=== PATIENT | female | born 1960 | race Caucasian/White ===

== ENCOUNTER 2019-04-28 09:30 | Inpatient (IN) | payer BC ==
[~2019-04-28 09:30] MED LIST: Acetaminophen 500 MG Tab PO ONE; Dextrose 5%-Lactated Ringers 1,000 ML IV SCH; Gabapentin 300 MG Cap PO ONE; ceFAZolin 2 GM in Premix Bag 1 BAG IV ONE
[2019-04-28] MEDS ORDERED: Gabapentin 300 MG Cap PO ONE (11:00)
[2019-04-28] MEDS ORDERED: Acetaminophen 500 MG Tab PO ONE (11:00)
[2019-04-28] MEDS ORDERED: Ondansetron 4 MG/2 ML SDV ONE (11:46)
[2019-04-28] MEDS ORDERED: Propofol 200 MG/20 ML SDV ONE (11:46)
[2019-04-28] MEDS ORDERED: Glycopyrrolate 0.2 MG/ML 5 ML MDV ONE (11:46)
[2019-04-28] MEDS ORDERED: Dexamethasone 4 MG/ML SDV ONE (11:46)
[2019-04-28] MEDS ORDERED: Neostigmine Methylsulfate 1 MG/ML 5 ML Syringe ONE (11:46)
[2019-04-28] MEDS ORDERED: Succinylcholine 200 MG/10 ML MDV ONE (11:46)
[2019-04-28] MEDS ORDERED: fentaNYL 250 MCG/5 ML SDV ONE ×2 (11:47→15:18)
[2019-04-28] MEDS ORDERED: Midazolam 1 MG/ML 2 ML SDV ONE (14:31)
[2019-04-28] MEDS ORDERED: Meropenem 500 MG SDV ONE (15:05)
[2019-04-28] MEDS ORDERED: Lactated Ringers 1,000 ML ONE (15:10)
[2019-04-28] MEDS ORDERED: Mupirocin Oint 22 GM Tube TOP ONE (15:30)
[2019-04-28] MEDS ORDERED: hydrOXYzine HCl 100 MG/2 ML SDV IM ONE (16:51)
[2019-04-28] MEDS ORDERED: Morphine PF 150 MG/30 ML PCA Syringe IV PRN (16:59)
[2019-04-28] MEDS ORDERED: Naloxone 0.4 MG/ML SDV IV PRN (17:13)
[2019-04-28] MEDS ORDERED: hydrOXYzine HCl 100 MG/2 ML SDV IM PRN (18:35)
[2019-04-28] MEDS ORDERED: Ondansetron 4 MG/2 ML SDV IVPUSH PRN (18:36)
[2019-04-28] MEDS ORDERED: LORazepam 0.5 MG Tab PO PRN (18:45)
[2019-04-28] MEDS ORDERED: Glucagon,Human Recombinant 1 MG Vial IM PRN (18:58)
[2019-04-28] MEDS ORDERED: Glucose Gel 15 GM in 37.5 GM Tube PO PRN (18:58)
[2019-04-28] MEDS ORDERED: 50% Dextrose in Water 50 ML Syringe IVPUSH PRN (18:58)
[2019-04-28] MEDS ORDERED: Insulin Lispro 100 Unit/ML 3 ML KwikPen SUBCUT PRN (18:58)
[2019-04-28] MEDS: Dextrose 5%-Lactated Ringers 1,000 ML IV SCH (19:30)
[2019-04-28] MEDS: Lactated Ringers 1,000 ML IV SCH (19:30)
[2019-04-28] MEDS ORDERED: ceFAZolin 1 GM Vial ONE (20:11)
[2019-04-28] MEDS ORDERED: Sodium Chloride 0.9% 100 ML ONE (20:12)
[2019-04-28] MEDS: ceFAZolin 1 GM in Premix Bag 1 BAG IV SCH (20:35)
[2019-04-28] MEDS: Mupirocin Oint 22 GM Tube TOP SCH (22:52)
[2019-04-28] MEDS: Gabapentin 300 MG Cap PO SCH (22:52)
[2019-04-28] MEDS ORDERED: buPROPion 100 MG Tab ONE (23:27)
[2019-04-29] MEDS: ceFAZolin 1 GM in Premix Bag 1 BAG IV SCH ×2 (03:33→12:35)
[2019-04-29] MEDS: Lactated Ringers 1,000 ML IV SCH ×2 (03:38→15:41)
[2019-04-29] MEDS ORDERED: hydrOXYzine HCl 100 MG/2 ML SDV IM PRN (07:16)
[2019-04-29] MEDS: Dextrose 5%-Lactated Ringers 1,000 ML IV SCH (07:26)
[2019-04-29] MEDS ORDERED: Acetaminophen/HYDROcodone 325-5 MG Tab PO PRN (08:05)
[2019-04-29] MEDS ORDERED: Acetaminophen 160 MG Tab,Disintegrating PO PRN (08:08)
[2019-04-29] MEDS: Pantoprazole 40 MG Tab.CR PO SCH (08:32)
[2019-04-29] MEDS: Levothyroxine 50 MCG Tab PO SCH (08:33)
[2019-04-29] MEDS ORDERED: Celecoxib 200 MG Cap PO SCH ×2 (09:00→21:00)
[2019-04-29] MEDS ORDERED: Liraglutide (rDNA Origin) 0.6 MG/0.1 ML 3 ML Pen SUBCUT SCH ×2 (09:00→21:00)
[2019-04-29] MEDS: Mupirocin Oint 22 GM Tube TOP SCH ×2 (09:20→20:05)
[2019-04-29] MEDS: PARoxetine 20 MG Tab PO SCH (09:21)
--- NOTE | 2019-04-29 11:51 | PN ---
CORRECTED REPORT DATE OF SERVICE: 04/29/2019 SUBJECTIVE: Ema is postoperative day #1. She has been up ambulating. Pain has been controlled. She had her Whitfield removed last evening and been voiding without difficulty. Afebrile. Oral intake 480. Urine output was 1250. OLENA drain #1 and #2 put out 25 and 80 respectively of a light red drainage. OBJECTIVE: GENERAL: Ema is a pleasant 58-year-old female. She is alert and orientated. VITAL SIGNS: TPR 95.1, 70, 16, blood pressure 140/81. HEENT: Negative. NECK: Supple. HEART: Regular rate and rhythm. LUNGS: Clear. ABDOMEN: Dressings dry and intact. Abdominal binder is on. OLENA drains intact. EXTREMITIES: Without peripheral edema and SCDs are on. ASSESSMENT: Panniculectomy, repair of umbilical hernia, and a repair of incisional hernia for chronic panniculitis, umbilical hernia and small incisional hernia. Date of surgery 04/28/2019. Surgeon, Andrea José MD. PLAN: 1. Regular step 4 gastric bypass diet. 2. [place] 5/325 mg 1 to 2 every 4 hours p.r.n. pain. DC SOFTWARE PERFORMANCE ENGINEER. 3. DC continuous pulse ox. 4. Dressing off. 5. May shower. 6. Saline lock IV at noon. 7. Good pulmonary toilet. 8. Communication order to teach patient on OLENA home drain care to strip, measure, and record OLENA drains q.i.d. and p.r.n. We will evaluate p.r.n. or in a.m. Trudy Galarza PA-C /[id number]
[2019-04-29] MEDS ORDERED: diphenhydrAMINE 25 MG Cap PO ONE (15:37)
[2019-04-29] MEDS ORDERED: diphenhydrAMINE 25 MG Cap PO PRN (15:37)
[2019-04-29] MEDS: traMADol 50 MG Tab PO PRN ×2 (18:39→22:35)
[2019-04-29] MEDS: Gabapentin 300 MG Cap PO SCH (20:03)
[2019-04-30] MEDS: traMADol 50 MG Tab PO PRN ×2 (04:11→11:02)
[2019-04-30] MEDS: Levothyroxine 50 MCG Tab PO SCH (08:10)
[2019-04-30] MEDS: Pantoprazole 40 MG Tab.CR PO SCH (08:11)
[2019-04-30] MEDS: Mupirocin Oint 22 GM Tube TOP SCH (08:33)
[2019-04-30] MEDS: PARoxetine 20 MG Tab PO SCH (09:05)
--- NOTE | 2019-04-30 16:43 | DISCH ---
ADMISSION DIAGNOSES: 1. Chronic panniculitis. 2. Status post Lauri-en-Y gastric bypass surgery. 3. Unspecified surgical malabsorption. 4. B12 deficiency. 5. Endometrial cancer. 6. Mood disorder. 7. Chronic sacroiliac joint pain. DISCHARGE DIAGNOSES: Panniculectomy, repair of umbilical hernia, and repair of incisional hernia for chronic panniculitis, umbilical hernia, and small incisional hernia. DATE OF SURGERY: 04/28/2019. SURGEON: Andrea José MD HISTORY: Ema is a 58-year-old female with chronic panniculitis. After preoperative evaluation and discussion of the possible risks and possible complications, she wished to proceed with surgical procedure. HOSPITAL COURSE: Ema had her surgery on 04/28/2019. She had no operative complications. On postoperative day #1, she was started on oral pain medication and a regular step-4 gastric bypass diet. On postoperative day 2, vital signs were stable, activity was good, pain was well managed, and she was able to be discharged to home. PHYSICAL EXAMINATION: GENERAL: Ema is a 58-year-old female. Height is 5 feet 4.9 inches and weight is 180 pounds. VITAL SIGNS: TPR are 97, 70, and 16; blood pressure is 145/70. HEENT: Negative. NECK: Supple. HEART: Regular rate and rhythm. LUNGS: Clear. ABDOMEN: [place] intact. Incision looks good. OLENA drains are intact, draining a light pink drainage. EXTREMITIES: Without peripheral edema. DISPOSITION: Discharged to home. CONDITION: Stable and improving. FOLLOWUP: Followup appointment on 05/09/2019 at 10 a.m. PRESCRIPTIONS: 1. New prescription is tramadol 50 mg oral q.4 hours p.r.n. pain, #40. 2. Celebrex 200 mg at bedtime, #14. 3. She is to resume her home medications. DIET: Usual diet as tolerated. Drink 8 to 10 glasses of water a day. ACTIVITY: No lifting greater than 10 pounds for 6 weeks. DRIVING: Do not drive for one week and while on pain medication. SHOWER/BATHING: May shower. DISCHARGE INSTRUCTIONS: Notify provider if any fever, increased pain, nausea, or vomiting. Keep site clean and dry. Wear abdominal binder for 6 weeks. Strip empty drain and record OLENA drains 4 times a day and bring results to clinic appointments. SPECIAL INSTRUCTIONS: Use incentive spirometer 10 times every hour while awake for one week.
--- NOTE | 2019-05-01 08:46 | OR ---
DATE OF PROCEDURE: 04/28/2019 SURGEON: Andrea José MD PREOPERATIVE DIAGNOSIS: Chronic panniculitis. POSTOPERATIVE DIAGNOSES: 1. Chronic panniculitis. 2. Umbilical hernia. 3. Small incisional hernia. OPERATIVE PROCEDURES: 1. Panniculectomy (21137). 2. Repair of umbilical hernia (57130). 3. Repair of incisional hernia (99183). ANESTHESIA: General. VEGETABLE PICKER: Trudy Galarza PA-C, and ISAAC Ivan3. INDICATION FOR PROCEDURE: This is a 58-year-old status post previous Lauri-en-Y gastric bypass, presenting with chronic panniculitis. The plan is to proceed with a panniculectomy. Potential risks including bleeding, infection, cosmetic deformity were reviewed, and the patient wishes to proceed. DETAILS OF PROCEDURE: The patient was taken to the operating room. After general endotracheal anesthesia was induced, a Whitfield catheter was inserted and the abdomen was prepped and draped. A broad transversely oriented elliptical incision was then made across the lower abdomen, carried down to the skin and subcutaneous tissue, down to the level of fascia. Using the Sonicision, the pannus was then reflected off the abdominal wall. In the midline, she had a previous incision with some dense scar, which was divided with electrocautery, and upon removal of the pannus, the patient was noted to have a small incisional hernia in the lower end of the previous lower midline incision, as well as umbilical hernia, and both of these were repaired with 0 Vicryl sutures. The patient had a distorted scar at the very lower aspect of the midline extending somewhat onto the suprapubic area. This was excised by means of a wedge-shaped incision and that tissue then removed as well. A small T-extension off the main incision was closed similar to the main incision, which was done after two Tristan-Stone drains were placed. This was irrigated with meropenem-containing saline solution and incision closed with a layer of 3-0 Vicryl stitch deep and then abe for the skin. Drains were affixed with some 4-0 Vicryl stitch. The patient was taken to the recovery room in satisfactory condition. Physician group fitness assistant department head, Trudy Galarza, played an essential role in assisting in this case helping to position the patient, retract structures as needed, as well as suturing and cutting sutures when indicated. Her presence improved patient safety and decreased operative time. Andrea José MD /[id number]
== END 2019-04-30 11:55 | disposition home or self-care (01) | DRG 364 ==
LOC: EDSTATUS 09:30 → JP.SDS 10:36 → JP.MS 10:36
PROVIDERS: ADMIT Surgery; ATTEND Surgery
PROC: 0HB7XZZ Excision of Abdomen Skin, External Approach (ICD-10-PCS; principal; 2019-04-28)
PROC: 0WQF0ZZ Repair Abdominal Wall, Open Approach (ICD-10-PCS; 2019-04-28)
PROC: 0WQF0ZZ Repair Abdominal Wall, Open Approach (ICD-10-PCS; 2019-04-28)
PROC: 0WBF0ZZ Excision of Abdominal Wall, Open Approach (ICD-10-PCS; 2019-04-28)
DX: M79.3 Panniculitis, unspecified (principal); L98.7 Excessive and redundant skin and subcutaneous tissue; K42.9 Umbilical hernia without obstruction or gangrene; K43.2 Incisional hernia without obstruction or gangrene; L90.5 Scar conditions and fibrosis of skin; K91.2 Postsurgical malabsorption, not elsewhere classified; Z98.84 Bariatric surgery status; Z98.0 Intestinal bypass and anastomosis status; F41.9 Anxiety disorder, unspecified; F32.9 Major depressive disorder, single episode, unspecified; E74.39 Other disorders of intestinal carbohydrate absorption; Z88.5 Allergy status to narcotic agent; E53.8 Deficiency of other specified B group vitamins; F39 Unspecified mood [affective] disorder; M53.3 Sacrococcygeal disorders, not elsewhere classified; G89.29 Other chronic pain; Z85.89 Personal history of malignant neoplasm of other organs and systems; Z86.79 Personal history of other diseases of the circulatory system; Z87.898 Personal history of other specified conditions
CPT/HCPCS: 82962; 88302; 94762; A9270-GY; J0330; J0690; J1100; J2020; J2185; J2250; J2270; J2405; J2704; J2710; J3010; J3410; J3490; J7042; J7050; J7120